=== PATIENT | female | born 1955 | race Caucasian/White ===

== ENCOUNTER 2020-04-07 23:40 | Inpatient (IN) | payer OTHER ==
[~2020-04-07] VITALS: Ht 167.6 cm; Wt 130.6 kg
[2020-04-08] MEDS ORDERED: BACTRIM DS TAB1 EAC1 PO (01:28)
[2020-04-08] MEDS ORDERED: ABILIFY15 MG PO (01:30)
[2020-04-08] MEDS ORDERED: PULMICORT0.5 MG/2 M INH (01:31)
[2020-04-08] MEDS ORDERED: DEPAKOTE ER500 M1 PO (01:32)
[2020-04-08] MEDS ORDERED: IPRAT-ALBUT 0.5-3 ML NEB (01:34)
[2020-04-08] MEDS ORDERED: HYDROXYZINE HCL25 M2 PO (01:35)
[2020-04-08] MEDS ORDERED: FLUPHENAZINE 5 M5 M1 PO (01:36)
[2020-04-08 02:00] VITALS: BP 115/60
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
--- NOTE | 2020-04-08 06:32 | NUR ---
PATIENT HAS CALLED MULTIPLE TIMES THRU NIGHT AND GEOPHYSICS PROFESSOR FOR WATER, AND OR TO LET US KNOW THAT SHE HAS HAD INCONTINENCE. HOSPITAL SHE CAME FROM TOLD US THEY WERE ABLE TO GET HER UP TO BSC WITH ONE ASSIST. PATIENT STATES SHE USES WALKER TO GET AROUND AT HOME. HOSPITAL ALSO SAYS PATIENT IS CONTINENT MOST OF TIME BUT IF SHE IS MAD OR DOESN'T WANT TO GET UP SHE WILL WET HERSELF. PATIENT WAS UP TO BSC WITH ASSIST X 2 THIS MORNING . ELECTRIFICATION ADVISER'S STATE THAT SHE IS NOT HELPING IN TRANSFERRING. THIS MORNING UPON WAKING HAVE NOTICED THAT BLE'S ARE REDDENED IN FRAUSTO AREA AND BLE'S ARE 2+ EDEMA. NO SOB. BED ALARM ON AND BED IN LOW POSITION.
[2020-04-08 07:52] VITALS: BP 122/68
[2020-04-08 14:50] LABS: URINE BILIRUBIN NEGATIVE (Negative); URINE BLOOD NEGATIVE (Negative); URINE CLARITY CLEAR; URINE GLUCOSE-RANDOM* NEGATIVE (Negative); URINE KETONES NEGATIVE (Negative); URINE LEUKOCYTES-REFLEX NEGATIVE (Negative); URINE NITRITE-REFLEX NEGATIVE (Negative); URINE PROTEIN (DIPSTICK) NEGATIVE (Negative); URINE UROBILINOGEN 0.2 E.U./dl (0.2-1.0)
[2020-04-08 14:53] LABS: URINE COLOR YELLOW
--- NOTE | 2020-04-08 16:28 | NUR ---
REFUSED AM MEDICATIONS STATING SHE WANTED TO SEE MD FIRST-"HOW DO YOU EVEN KNOW WHAT I TAKE" WHEN INFORMED WHAT THEY WERE STATES "I JKNOW I DON'T ENEDINA AN ABX-I DON'T HAVE ANY INFECTION" UA COLLECTED AT APPRX 1330 AFTER MULTIPLE PROMPTS. INITIALLY REFUSED LASIX ORDERED BY MD FOR SIGNIFICANT PEDAL EDEMA 3 PLUS BILAT-BUT DID TAKE ON 3RD APPROACH AFTER BEING TOLD IT WAS A ONE TIME ORDER. CONVERSATION CIRCUMSTANTIAL-SPEECH RAPID-MULTIPLE TOPIC CHANGES BUT CONVERSSATION IS GOAL DIRECTED. USING WC TO PROPEL SELF ON UNIT. APPETITE GOOD AND ATTENDS TO OWN ADLS. oriented x 3-FULL RANGE AFFECT-BORDERING ON INCONGRUENTLY BRIGHT AT TIMES WHEN SPEAKING ABOUT ISSUES LEADING TO ADMISSION
--- NOTE | 2020-04-08 18:50 | NUR ---
REFUSED DEPAKOTE LEVEL AND CXR TODAY-LABILE MOOD-AT ONE POINT PLEASANT AND INTERACTING WITH STAFF NEXT INTERACTION YELLING AND SCREAMING "HEY STUPID NURSES IS ANYONE HERE YOU ARE GOING TO HAVE TO PICK ME UP OFF THE FLOOR IF YOU DON;T GET YOUR ASS OVER HERE AND TAKE ME TO BATHROOM NOW" VERY LABILE
[2020-04-08 19:39] VITALS: BP 120/53
[2020-04-08 20:30] VITALS: BP 123/80
[2020-04-08 22:19] VITALS: BP 160/90
--- NOTE | 2020-04-08 22:47 | NUR ---
PATIENT REFUSED MEDS TONIGHT. SHE TOOK ONE OF HER DEPAKOTE. SHE THOUGHT SHE WAS TAKING HER ANTIBIOTIC. I HAD TOLD HER WHICH ONE WAS HER ANTIBIOTIC AND SHE PLACED THE DEPAKOTE IN HER MOUTH INSTEAD. PATIENT WAS WAKING UP HER ROOM MATE BY YELLING OUT AND BEING DEMANDING TO STAFF AND ROOMMATE. SHE IS MAD BECAUSE SHE COULDN'T HAVE HER PHONE. EXPLAINED IT IS BEING KEPT SAFE. IT WAS AFTER HOURS TO MAKE PHONE CALLS. PATIENT WAS SLEEPING IN BED WHEN THIS NURSE CAME ON SHIFT. PATIENT BECAME ANGRY WHEN I AWAKENED HER GENTLY TO INTRODUCE MYSELF AND DO ASSESSMENT AND GIVE HER HS MEDS. PATIENT STARTED YELLING, "GET OUT OF HERE!" "DON'T COME BACK!" THEN PATIENT RANG MATHIS AND TOLD MACHINE FANCY STITCHER THAT SHE NEEDED CHANGEDS SINCE SHE URINATED ON HERSELF. PATIENT WAS HELPED UP TO BSC AND BED AND CLOTHES AND PATIENT CLEANED. REMINDED PATIENT TO LET US KNOW BEFORE SHE WET HERSELF IF SHE COULD. PATIENT BEGAN ARGUING WITH THE AIDES OVER EVERYTHING THEY WERE DOING TO HELP HER. PATIENT WANTED TO GET UP OUT OF BED AND GO TO DINING ROOM FOR THE NIGHT. THIS NURSE EXPLAINED IT WAS BEDTIME AND SHE NEEDED TO GO BACK TO SLEEP AND LEAVE HER ROOM MATE ALONE AND LET HER SLEEP. SHE BEGAN YELLING AT ME AND CURSING. TOLD PATIENT THAT I WAS GOING TO HAVE TO CALL THE DR IF SHE REFUSED TO TAKE HER MEDS AND HE MAY ORDER HER AN INJECTION. SHE STILL YELLLED THAT SHE WAS NOT GOING TO TAKE HER MEDS. DR PAREHK WAS CALLED AND ORDER FOR CHLORPROMAZINE 25MG IM ONE TIME AND LORAZEPAM 1MG IM ORDERED. PT ALERTED THAT SHE WAS GOING TO GET THE INJECTION AND SHE STILL REFUSED MEDS. EXPLAINED SHE COULD HAVE BOTH INJECTIONS GIVEN AT ONE TIME OR SEPARATE. SHE ARGUED AND SAID SHE WASN'T GOING TO TAKE ANY SHOTS OR FOLLOW ANY ORDERS FROM DR PAREKH. ONLY DR IBARRA. I EXPLAINED THAT DR PAREKH IS IN CHARGE OF HER CARE HERE AND THAT DR IBARRA IS NOT AT THIS HOSPITAL. SECURITY WAS CALLED FOR BACK UP. ANOTHER RN, NIECY GAVE CHLORPROMAZINE 25MG IN RIGHT ARM AND I GAVE ATIVAN 1MG IN LEFT ARM. PATIENT WAS HELPED TO BATHROOM WITHIN 20 MINUTES OF INJECTIONS. PATIENT WAS TOLD WHAT MEDS SHE WAS BEING GIVEN AND THAT SHE WOULD NEED TO STAY IN BED D/T THE MEDS CAN CAUSE HER UNSTEADY ON HER FEET OR FALL EASILY. PATIENT ASKED TO HAVE HER 4 SIDERAILS PUT UP SO SHE WOULDN'T GET UP. SHE TOLERATED SHOTS WELL. WITHIN 10 MINUTES SHE WAS CALLING FOR HELP. THIS NURSE WENT TO SEE WHAT SHE WANTED. SHE SAID SHE WANTED TO GET OUT OF BED AND SIT IN DINING ROOM. AGAIN, I EXPLAINED SHE NEEDED TO STAY IN BED AND THAT IT WAS BEDTIME. I OFFERED TO HELP REPOSITION HER IN BED AND GET HER A DRINK IF SHE NEEDED. PATIENT DECIDED TO HAVE HOB ELEVATED UP SO SHE COULD READ FOR A WHILE. BED IN LOW POSITION AND BED ALARM IS ON. CONTINUING TO MONITOR.
[2020-04-09 08:41] VITALS: BP 147/78
[2020-04-09 12:10] LABS: ABSOLUTE NEUTROPHILS 3.7 thou/uL (1.4-8.2); BASOPHILS 0.8 % (0.0-2.0); EOSINOPHILS 2.1 % (0.0-3.0); HEMATOCRIT 39.1 % (37.0-47.0); HEMOGLOBIN 12.7 gm/dL (12.0-15.0); LYMPHOCYTES 31.1 % (24.0-44.0); MCH 31.3 pg (26.0-34.0); MCHC 32.6 g/dL (28.0-37.0); MCV 96.2 fL (80.0-100.0); MONOCYTES 5.2 % (1.0-8.0); PLATELET COUNT 171 thou/uL (150-400); POLYS 60.8 % (36.0-66.0); RBC 4.06 mil/uL (4.20-5.00); RDW 14.3 % (10.5-14.5); WBC 6.1 thou/uL (4.0-11.0)
[2020-04-09 12:18] LABS: CALCIUM 9.8 mg/dL (8.5-10.1); CREATININE 0.7 mg/dL (0.6-1.0); POTASSIUM 3.9 mmol/L (3.5-5.1)
--- NOTE | 2020-04-09 16:19 | NUR ---
KEN invited patient to participate in group today. She agreed to attend but did not leave her room after being asked several times.
[2020-04-09 17:45] VITALS: BP 147/78
[2020-04-09 18:11] VITALS: BP 147/78
--- NOTE | 2020-04-09 18:40 | NUR ---
0730 Lying supine in bed without s/o distress. Alert and orientated X4. Denies SI/HI. Calm and compliant. States she wants to take a shower this AM. Declined to come to group despite encouragement stating she was tired and wanted to sleep. Breath sounds clear t/o, diminished with RR 20-24 and O2 sat of 92%. Reg HR auscultated. Color pink with brisk capillary refill and palpable peripheral peripheral pulses. +3-+4 edema in lower extremities. Incontinent of large amt yellow urine. Active bowel sounds over large, soft, rounded abdomen. Reddened area between thighs and inguinal folds. Able to stand with assistance and ambulate with walker. 1200 Conversing with peers in day room. No s/o distress. Spending time alone in room reading bible. 1600 Participating in group, asking for Congregational music to be played. Conversive without s/o distress. 1700 Speaking with on phone. Overheard stating to , "If you want to save this marriage you will come pick me up at [place] right now." Physical therapist here working with pt, states pt wants to talk with me about being discharged "right now". Pt. at nursing station asking to be discharged. Referred to Dr. Mason. Wrote note to Dr. Mason stating she wanted to leave AMA. 1812 Pt. refused to sign discharge instructions and Medicare forms. Signed AMA form and requested copies. Assisted with dressing and discharged with belongings to security with .
--- NOTE | 2020-04-09 18:51 | NUR ---
Patient left AMA.
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
== END 2020-04-09 18:13 | disposition left against medical advice (07) | DRG 885 ==
LOC: SBH
PROVIDERS: Hospitalist; Nurse Practitioner; ADMIT Psychiatry & Neurology Psychiatry; ATTEND Psychiatry & Neurology Psychiatry
DX: F25.0 Schizoaffective disorder, bipolar type (principal); I10 Essential (primary) hypertension; J44.9 Chronic obstructive pulmonary disease, unspecified; K59.00 Constipation, unspecified; R53.81 Other malaise; F17.210 Nicotine dependence, cigarettes, uncomplicated; F32.9 Major depressive disorder, single episode, unspecified; F41.9 Anxiety disorder, unspecified; E03.9 Hypothyroidism, unspecified; E78.5 Hyperlipidemia, unspecified; R60.0 Localized edema; Z88.8 Allergy status to other drugs, medicaments and biological substances; Z79.899 Other long term (current) drug therapy
CPT/HCPCS: 10880

== ENCOUNTER 2020-06-13 19:26 | Inpatient (IN) | payer OTHER ==
[~2020-06-13] VITALS: Ht 167.6 cm; Wt 123.4 kg
[~2020-06-13 19:26] MED LIST: ABILIFY15 MG PO; BACTRIM DS TAB1 EAC1 PO; DEPAKOTE ER500 M1 PO; FLUPHENAZINE 5 M5 M1 PO; HYDROXYZINE HCL25 M2 PO; IPRAT-ALBUT 0.5-3 ML NEB; PULMICORT0.5 MG/2 M INH
[2020-06-13 19:36] VITALS: BP 122/57
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
[2020-06-14 07:51] VITALS: BP 125/65
--- NOTE | 2020-06-14 10:07 | NUR ---
Assumed care 0700. Angry/irritable upon initial greeting. In recliner, was toileted before breakfast with small yellowish BM on toilet. Would take Tylenol before AM meds. Was brought Tylenol for left hip pain then declined her AM 0900 meds. Stated she did not need them. Attended/participated in group. Wants Home Health when she goes home. Says she wants to gain strength in her legs to be more independent at home. Conversant with peers.Up using walker.
--- NOTE | 2020-06-14 12:52 | NUR ---
iT TOOK ABOUT ONE HALF HOUR TO GET PATIENT TO TAKE HER po MEDS. She is paranoid about her meds and particular. When she was told she had Depakote ordered she shaid she would not take it. She allowed nurse to do physical assessment. She was showered. Both lower extremities are swollen, not pitting edema. A ADIEL hose is on right leg. Currently in recliner with legs elevated. Last BM was 06/13/20 per patient report. She denies SI/HI/AH/VH. Her goal for the day is to take her socks off herself. She had no concerns. She has a non-productive cough. Earlier Tylenol was effective.
--- NOTE | 2020-06-14 18:15 | NUR ---
Wanting to know meds she was taking then stopped nurse who was informing her. She wanted to make sure the Cholecalciferol was Vitamin D. Was paranoid that nurse was bringing her a drink with medication in it. She declined the AM Depakote-order was subsequently changed and the original ordered Depakote was not given=refusal. Dr. jc and Kiersten Ambrose were informed. She would make multiple requests of staff one at a time requiring several trips. At 1810 she wanted to take a shower. US helped her with shower earlier. She was deferred to shift supervisor melting to help her. Then she wanted to be pushed in recliner to her room to sleep in recliner for the night. If she would have gone to bed bed alarm would have been set. [place] alarm was not set due to patient able to call using library selby, [employer], water jug all close by pt. for the night. She self feeds. Has developed her routine of where she wants to sit, who to talk to and so forth and does not want any deviation from it.
[2020-06-14 19:34] VITALS: BP 120/62
--- NOTE | 2020-06-14 23:15 | NUR ---
ASSUMED CARE OF PT AT 1900HRS. ASSESSMENT CHARTED. PT REDUSED PO HS MEDS. CINDAMYCIN APPLIED TO FACE. TEDS HOSE IN PLACE. VSS AND NO S/S OF ACUTE DISTRESS. PT REPORTED OF TO DIFFERENT RN AT 2330HRS.
--- NOTE | 2020-06-15 04:13 | NUR ---
ASSUMED PT CARE AT AROUND 2330 HRS. PT SLEEPING IN RECLINER IN HER ROOM. PT USES MATHIS WHEN NEEDING TO USE BATHROOM. SHE IS ABLE TO WALK SLOWLY TO BATHROOM USING ROLLER WALKER. PT CAME UP TO DAY AREA AT AROUND 0300HRS. PT WALKING AROUND. TENDS TO SING AND GET LOUD BUT WAS ADVISED TO BE QUIET AND SHE DID. SHE DOES HAVE AGGRESSIVE TENDENCIES.
[2020-06-15 08:00] VITALS: BP 106/76
[2020-06-15 08:20] VITALS: BP 106/76
--- NOTE | 2020-06-15 08:20 | NUR ---
PT SITTING IN DINING ROOM VISITING WITH PEERS. PT REFUSED DEPAKOTE THIS AM. PT STATED SHE WILL TAKE EVERYTHING OTHER THAN THE DEPAKOTE. PT HAS REDDNESS TO FACE. PT UP WITH WALKER AT TIMES AND GRACIE CHAIR OTHER TIMES. PT HAS ADIEL HAQ ON BILATERLLY TO LE DUE TO LYMPHADEMA TO LE. PT IS VERY OUT SPOKEN WITH HER WISHES.
--- NOTE | 2020-06-15 10:38 | NUR ---
PT LIKES TO HEAR GOSSPIL MUSIC BAND [facility] ME, FLAWLESS, AND ONLY IMAGINE. PT LIKES TO HAVE BLANKETS ON SHE WANTED X5 BLANKETS WHEN IN BED.
--- NOTE | 2020-06-15 12:52 | NUR ---
NOTICED TODAY THAT PT WAS ASKING OTHER PATIENTS TO HELP HER WITH REMOVING HER SOCK. ENFORCED PT THAT SHE SHOULD ASK STAFF FOR HELP INSTEAD OF ASKING PATIENTS. THIS PERTICULAR PT SHE WOULD ALSO ASK TO SIT NEXT TO HER SO SHE COULD TALK TO HIM.
--- NOTE | 2020-06-15 13:00 | NUR ---
PT STATED SHE HAS PAIN TO LEFT HIP. ADM IBUPROPHEN 600MG PO FOR PAIN TO LEFT HIP OF 8 ON 1-10 SCALE.
--- NOTE | 2020-06-15 16:24 | NUR ---
PT UP WALKING WITH THERAPY. PT STATED IBUPROPHEN WORKED WELL FOR PAIN CONTROL.
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
[2020-06-15 20:22] VITALS: BP 105/47
[2020-06-15 21:47] VITALS: BP 105/47
--- NOTE | 2020-06-16 02:45 | NUR ---
Assumed care of patient this pm shift. Patient sitting in mileu in reclining chair. Patient in good spirits, calm and cooperative. Patient denies hi/si. Patient denies pain. Patient is alert and oriented x3. Patients affect appears blunted. Patients assessment shows no signs of acute distress. Patient is considered a falls risk and ambulates with a walker in her room and a wheel chair in the mileu. Patient takes medications whole and is adherent to the prescribed schedule. Patient was concerned about getting a Bible to read, RN found one at the nurses station and gave it to her. We will continue to monitor per hospital policy.
[2020-06-16 07:30] VITALS: BP 120/66
[2020-06-16 08:40] VITALS: BP 120/66
--- NOTE | 2020-06-16 08:41 | NUR ---
PT SITTING IN DINING ROOM. PT REFUSED DEPAKOTE DUE TO THINKING IT DOESN'T HELP. SHE HAS SOME COUGH AFTER DRINKING FROM [facility] [facility]. PT STATED HER LEFT ANKLE SEEMS MORE SWOLLEN THAN THE RT TODAY. PT HAS ADIEL HOSE ON BILATERALY. PT IN GOOD SPIRITS TODAY.
--- NOTE | 2020-06-16 09:28 | NUR ---
PT WATCHING JORGE SU AND DESIDED TO WALK IN DINING ROOM WITHOUT WALKER. PT HOLDING ONTO THIS LINE TENDER FLAKEBOARD HAND AND WALKED HALF WAY AROUND DINING ROOM WITH WALKER IN TOW. PT WAS VERY ABOUT WALKING AROUND THE ROOM.
--- NOTE | 2020-06-16 12:10 | NUR ---
ADM IBUPROPHEN 600MG PO FOR PAIN TO LEFT HIP OF 8 ON 1-10 SCALE.
[2020-06-16 19:28] VITALS: BP 117/60
--- NOTE | 2020-06-17 04:02 | NUR ---
PATIENT REFUSED HER DEPAKOTE AND HER DOCUSATE NA. THIS NURSE EXPLAINED WHAT THESE MEDICATIONS WERE AND WHY SHE WAS TAKING THEM. SITTING IN HER ROOM AT TIME OF MEDICATION ADMINISTRATION IN THE FELICITA-CHAIR. ASSISTED TO BATHROOM WITH WALKER. VERY SLOW TO GET UP, HOWEVER, WALKS WITH SBA AND WALKER. WILL MONITOR.
[2020-06-17 08:50] VITALS: BP 128/69
--- NOTE | 2020-06-17 16:55 | NUR ---
Assumed care of patient at 0700. Ambulates with walker. Gait slow and steady. Alert and oriented X4. Denies SI/HI. When asked about hallucinations she responded with a question Do I? Has frequent requests. Encouraged to provide as much self care as possible. Medication adherent. Incontinent of urine X1. Took a shower. Jose Luis hose on. Face red. Clindamycin applied to reddened areas on face and chest. Pleasant and cooperative. Spends time in the dayroom. Participating in groups and activities. Comnplained of headache. Given Ibuprofen 600 mg PO at 1310 which was effective.
--- NOTE | 2020-06-17 17:23 | NUR ---
Pt is schedule to d/c 06/18/2020. Pt will pick her up around 8:30pm. Sw attempted to schedule a follow up psychotherapy and psychiatry appointment [facility]. Sw was informed by the organization that an appointment cannot be made until the Pt calls to make a payment and a payment arrangement. This information was relayed to the Pt and her . Pt was seeing Dr. Pepe for pshchiatry and Juanita Noble for therapy at [facility].
[2020-06-17 19:29] VITALS: BP 138/73
[2020-06-17 22:01] VITALS: BP 138/73
--- NOTE | 2020-06-18 02:12 | NUR ---
Assumed care of patient this pm shift. Patient in good spirits sitting in a reclining chair reading from the Bible in [facility]. Patient is alert and oriented x3. Patient denies hi/si. Patient denies pain. Patients affect is euthymic. Patient is not considered a falls risk and ambulates with a walker. Patient is continent of bowel and bladder and needs only minimal assist to get to the bathroom. Patients assessment shows no signs of acute distress. We will continue to monitor per hospital policy.
[2020-06-18 07:36] VITALS: BP 139/73
[2020-06-18 08:40] VITALS: BP 139/73
[2020-06-18] MEDS ORDERED: PEPCID20 MG PO (15:23)
[2020-06-18] MEDS ORDERED: ABILIFY10 MG PO (15:23)
[2020-06-18] MEDS ORDERED: CLEOCIN T60 M1 TOP (15:24)
[2020-06-18] MEDS ORDERED: VITAMIN D325 MC1 PO (15:24)
--- NOTE | 2020-06-18 16:01 | NUR ---
KEN and Dr. Sanchez had a meeting with Pt and her Danny. Discharge was discussed. Danny will not be able to pick Pt up due to his work schedule. Also discussed was billing issue with [facility] that would need to be resolved prior to Pt recieveing an appointment. However KEN will schedule and appointment with PCP.
--- NOTE | 2020-06-18 16:05 | NUR ---
KEN was able to schedule a follow up appointment with Pt's PCP, Donna Willingham NP. The appointment will be 07/02/2020 @ 1pm. Pt will be transported home by [facility]. confirmation #[id number]
--- NOTE | 2020-06-18 18:13 | NUR ---
Assumed care of patient at 0700. Ambulatory with walker. Gait slow but steady. Alert and oriented X4. Denies Si/Hi and AVH. Pleasant. Participating in groups and patient activities. Interacting with peers and staff. Says is being discharged today. Good appetite. Medication adherent. Breath sounds clear. Denies abdominal tenderness. Bowel sounds active. No pedal edema. Grooming and hygiene appropriate. Using Clindamycin to face. Areas appear to be clearing slowly. Reviewed discharge instructions with patient. Discussed prescriptions and transportation. Discharged at 1630 via wheelchair to home via [facility] with prescriptions, discharge instructions and belongings.
--- NOTE | 2020-06-19 20:51 | D ---
[facility] [address] [place] [address] DISCHARGE SUMMARY Name: MOLLY ARNOLD Room #: 522A-A [facility] IN M.R.#: [id number] Admission: 06/13/20 Attend Phys: Himanshu Mason DO Discharge: 06/18/20 Date of : 51 Report #: [id number] THIS REPORT FOR: cc: Donna Willingham Melanie A. FNP Kerstein, Andrew H. DO ~ THIS REPORT FOR: //name// CC: Himanshu Willingham DATE OF SERVICE: 06/18/2020 INPATIENT PSYCHIATRIC DISCHARGE SUMMARY ATTENDING PHYSICIAN: Himanshu Mason DO INJECTION MOLDING MACHINE OPERATOR AT THE TIME OF DISCHARGE: Delmar Leiva MD DISCHARGE DIAGNOSES: Bipolar 1 disorder. Other diagnoses include morbid obesity, quite a few medical comorbidities including COPD, chronic lymphedema, debility, rosacea being treated with clindamycin cream. DISCHARGE DIET: An 1800-calorie diabetic diet. ACTIVITY LEVEL: As tolerated. I cautioned her about driving, although she said she does frequently drive even in her physical state and medication she is on. DISCHARGE MEDICATIONS: Included aripiprazole 20 mg p.o. daily, Depakote was discontinued in this admission due to her noncompliance, famotidine 20 mg p.o. daily, clindamycin 2 grams topical p.o. b.i.d. for another 7 days to clear up her facial rash, cholecalciferol 1000 international units p.o. daily. I just noticed an area that looks like historically she was as high as 30 mg of Abilify, but only intended to be on 20 mg at this time. DISCHARGE PLAN: The patient will go home to live with her , Danny. The patient was sent home by [employer]. Unfortunately, Danny is a delivery truck driver heavy and is in [place] today. Myself and licensed master social worker were most glad that he was going to be able to pick her up, so we had to make the alternative last minute arrangements. There is a primary care appointment with Donna Willingham on 07/02/2020 at 1:00 p.m. The patient had been getting services at [facility]; however, due to financial matter, they were unwilling to schedule an appointment. [facility] [address] [place] [address] DISCHARGE SUMMARY Name: MOLLY ARNOLD Room #: [address] [place] [address] [place] .R.#: [id number] Admission: 06/13/20 Attend Phys: Himanshu Mason, Discharge: 06/18/20 Date of : 51 Report #: [id number] LABORATORY DATA: At this admission, there were really no in-house labs done as they were done by [facility]. reason for admission: Back on 06/13/2020, [facility]. She was referred from [facility]. Apparently, she had a sort of behavior concerns for psychosis. EMS was called as her family was not helping her. She could not get out of chair and was in pain. She evidently verbalized at [facility]. Her thoughts were deemed as threatening. The patient has a history of 2 prior suicide attempts. So that was another reason she was referred for hospitalization. HOSPITAL COURSE: Here at [place] largely uneventful. The patient did not like Depakote, refused several doses, so I discontinued that. I increased her Abilify to 20 mg p.o. daily. In setting up aftercare, there was the [place] and other than [facility], there are no other providers. Unfortunately, I do not have the power to make her to be seen at [facility] if she has outstanding debt. I did have my licensed master social worker set up with PCP appointment sooner, though the patient can resume psychotherapy with [facility] better. Need for this was relayed via telephone to her Danny. PHYSICAL EXAMINATION: VITAL SIGNS: At time of discharge, temperature 36.5, pulse 71, respirations 18, BP 139/73. MUSCULOSKELETAL: Assisted gait with walker. Normal station. MENTAL STATUS EXAMINATION: This is a well-developed, morbidly obese female with little bit of rosacea on her face. Attention intact. Concentration intact. Speech is normal rate, volume and tone. Thought process is linear and goal oriented. Thought content focused on discharge. No psychomotor agitation. No psychomotor retardation. Denied auditory, visual, or tactile hallucination. Denied suicidal intent or plan, denied homicidal intent or plan. Mood and affect was congruent and euthymic, fair range. Memory not formally tested. Insight limited. Judgment fair. Fund of knowledge, likely below average. Prognosis for this patient is guarded given her multiple health problems, poor coping skills, [place] mental health and general medical resources. <ELECTRONICALLY SIGNED> By: Himanshu Mason DO 06/19/202050 00 0013 Himanshu Mason, /nt
== END 2020-06-18 16:15 | disposition home or self-care (01) | DRG 885 ==
LOC: SBH 19:26
PROVIDERS: ADMIT Psychiatry & Neurology Psychiatry; ATTEND Psychiatry & Neurology Psychiatry
DX: F31.9 Bipolar disorder, unspecified (principal); Z68.41 Body mass index [BMI] 40.0-44.9, adult; E66.01 Morbid (severe) obesity due to excess calories; J44.9 Chronic obstructive pulmonary disease, unspecified; R53.81 Other malaise; L71.9 Rosacea, unspecified; I89.0 Lymphedema, not elsewhere classified; I10 Essential (primary) hypertension; F25.9 Schizoaffective disorder, unspecified; K59.00 Constipation, unspecified; Z88.8 Allergy status to other drugs, medicaments and biological substances
CPT/HCPCS: 10880